=== PATIENT | female | born 1990 | race Caucasian/White ===

== ENCOUNTER → 2021-09-26 14:03 | Outpatient (CLI) | payer OTHER, SELFPAY ==
[2021-09-26 14:52] LABS: hCG Titer Quant., Serum < 1 mIU/mL (1-3)
== END ==
PROVIDERS: PCP Family Medicine; Visit Provider Obstetrics & Gynecology
DX: N92.6 Irregular menstruation, unspecified (principal)
CPT/HCPCS: 36415; 84702